=== PATIENT | male | born 1960 | race Caucasian/White ===

== ENCOUNTER 2016-09-27 16:31 | Emergency (ER) | payer OTHER ==
[2016-09-27 16:45] VITALS: BP 148/61; PULSE 77; RESP 18; TEMP 98.2; O2SAT 96
--- NOTE | 2016-09-27 17:57 | UCPHY ---
H & P Time Seen by Provider: 09/27/16 17:46 Patient Type: New HPI/ROS: This patient presents with a chief complaint of pain and swelling in his left knee which she 1st noticed 4 days ago. He feels that it is improved with decreased swelling and redness over the past 1-2 days. Yesterday and the day before he felt feverish and chilled and also had some myalgias. He is unaware of any a injury. Smoking Status: Never smoked Physical Exam: This patient is alert, lucid and has a normal mental status. He appears to be in minimal if any discomfort. He is currently afebrile Examination of the left knee reveals swelling, erythema and tenderness overlying the patella. There is faint erythema extending down over the tibial tubercle medially. The skin is warm to the touch. CMS is intact distally. Constitutional: Initial Vital Signs Temperature (C) 36.8 C 09/27/16 16:40 Heart Rate 77 09/27/16 16:40 Respiratory Rate 18 09/27/16 16:40 Blood Pressure 148/61 H 09/27/16 16:40 O2 Sat (%) 96 09/27/16 16:40 O2 Delivery Mode Room Air Allergies/Adverse Reactions: aspirin Allergy (Verified 09/27/16 16:39) ibuprofen Allergy (Verified 09/27/16 16:39) Home Medications: Medication Instructions Recorded Cephalexin [Keflex] 500 mg PO QID #28 cap 09/27/16 Medical Decision Making Differential Diagnosis: This patient has an obvious prepatellar bursitis. There is no evidence of a septic joint or fracture. Departure - Departure Disposition: Home, Routine, Self-Care Clinical Impression: Prepatellar bursitis Qualifiers: Laterality: left Qualified Code(s): M70.42 - Prepatellar bursitis, left knee Condition: Good Instructions: Knee Bursitis (ED) Additional Instructions: If your knee has not shown improvement in 48 hours you should be re-evaluated. If in the meantime you feel that your symptoms are worsening you should be seen sooner. Keep your leg elevated as much as possible and limit your activities. Apply warm compresses to the area several times daily. Referrals: Emery Gambino MD [Primary Care Provider] - As per Instructions Prescriptions: Cephalexin [Keflex] 500 mg PO QID #28 cap - PQRS PQRS Measurement: Not applicable
== END 2016-09-27 18:08 | disposition home or self-care (01) ==
LOC: CED 16:31
DX: M70.42 Prepatellar bursitis, left knee (principal)
CPT/HCPCS: 99202-PO; G0463-PO